=== PATIENT | female | born 1990 | race Caucasian/White ===

== ENCOUNTER 2020-11-29 11:50 | Emergency (ER) | payer SELFPAY ==
[~2020-11-29] VITALS: Ht 177.8 cm; Wt 73.7 kg
--- NOTE | 2020-11-29 12:36 | NUR ---
LIZET RN: CLEAN CATCH UA COLLECTED AND WALKED TO LAB BY SPECIMEN BOSS'S BELIA. MARKY-PAD PROVIDED TO PT. CONTINUES WAITING IN LOBBY FOR ROOM ASSIGMENT. NAD NOTED.
[2020-11-29 12:52] LABS: MICROSCOPIC INDICATED
--- NOTE | 2020-11-29 12:56 | NUR ---
FIRST CONTACT WITH PT. PT HAD VAGINAL BLEEDING TODAY. PT IS7 WEEKS / LMP 10/06/20. A1. PT DENIES ABD PAIN/DZY AT THIS TIME. PT'S AOX4. RESPS EVEN AND UNLABORED. BP/SPO2 MONITORS IN PLACE. CALL LIGHT WITHIN REACH.
[2020-11-29 13:22] LABS: ALBUMIN 3.8 g/dL (3.4-5.0); ANION GAP 5 mmol/L (5-15); CHLORIDE 103 mmol/L (98-107)
[2020-11-29 13:39] LABS: BASOPHILS % (AUTO) 0 % (0-1); EOSINOPHILS % (AUTO) 1 % (1-7); LYMPHOCYTES % (AUTO) 25 % (22-44); MEAN CORPUSCULAR HEMOGLOBIN 31.9 pg (27.0-34.8); MEAN CORPUSCULAR HGB CONC 34.3 g/dL (32.4-35.8); MEAN PLATELET VOLUME 8.1 fL (7.4-10.4); MONOCYTES % (AUTO) 14 % (2-9); NEUTROPHILS % (AUTO) 60 % (42-75); PLATELET COUNT 268 x10^3/uL (130-400); RED BLOOD COUNT 4.25 x10^6/uL (3.82-5.3); RED CELL DISTRIBUTION WIDTH 11.4 % (9.6-15.2)
[2020-11-29 13:40] LABS: ALANINE AMINOTRANSFERASE 38 U/L (12-78); ALKALINE PHOSPHATASE 46 U/L (45-117); BILIRUBIN,TOTAL 0.7 mg/dL (0.2-1.0); CREATININE 0.66 mg/dL (0.55-1.02); MD NO
[2020-11-29 13:48] VITALS: BP 117/62
--- NOTE | 2020-11-29 13:48 | NUR ---
pt amb to br with steady gait.
--- NOTE | 2020-11-29 15:22 | NUR ---
Patient given discharge instructions and they have confirmed that they understand the instructions.
== END 2020-11-29 15:23 | disposition home or self-care (01) ==
LOC: ED 14:29
DX: O20.0 Threatened abortion (principal)
CPT/HCPCS: 36415; 76801; 80053; 81001; 84702; 85025; 86901; 99284